=== PATIENT | male | born 1990 | race Hispanic/Latino ===

== ENCOUNTER 2024-05-07 19:16 | Emergency (ER) | payer SELFPAY ==
[~2024-05-07] VITALS: Ht 167.6 cm; Wt 115.7 kg
[2024-05-07 19:20] VITALS: PULSE 108; RESP 18; TEMP 98.2
[2024-05-07] MEDS ORDERED: VALACYCLOVIR500 MG PO (20:18)
[2024-05-07 21:16] VITALS: BP 156/84; PULSE 94; RESP 18; TEMP 98.2; O2SAT 99
== END 2024-05-07 20:20 | disposition home or self-care (01) ==
LOC: FSED 19:25
DX: B02.9 Zoster without complications (principal)
CPT/HCPCS: 99283